=== PATIENT | female | born 1990 | race Caucasian/White ===

== ENCOUNTER → 2017-06-21 | Outpatient (CLI) | payer OTHER ==
[~2017-06-21] MED LIST: AMOXICILLIN500 M1 PO; BACTRIM,SEPT1 TABLET PO; FLEXERIL10 MG PO; HYDROCODON-ACE1 EAC7 PO; KEFLEX500 MG PO; MACROBID100 MG PO; MOTRIN800 MG PO; ULTRAM50 MG PO
== END | disposition home or self-care (01) ==
LOC: CDC 11:01
DX: R00.0 Tachycardia, unspecified (principal); R94.31 Abnormal electrocardiogram [ECG] [EKG]
CPT/HCPCS: 93000